=== PATIENT | male | born 1940 | race Caucasian/White ===

== ENCOUNTER 2020-02-24 10:07 | Emergency (ER) | payer MEDICARE, OTHER, SELFPAY ==
--- NOTE | ~2020-02-24 | XR_ITS ---
EXAMINATION: XR_[id number]_CR DATE: 02/24/2020 11:00 INDICATION: Right rib pain. TECHNIQUE: A frontal view of the chest and 3 views of the right ribs were obtained. COMPARISON: Chest 2 views 12/02/2017 FINDINGS: There is mild atelectasis at the lung bases. No pleural effusion or pneumothorax. The heart size is normal. There is an old healed fracture of right clavicle. There is an old healed fracture o f right sixth rib. IMPRESSION: 1. No acute rib fracture. Reviewed, dictated and finalized at location E. IMPRESSION: 1. No acute rib fracture.
[2020-02-24 10:26] VITALS: BP 119/84; PULSE 87; RESP 18; TEMP 36.7; O2SAT 98
--- NOTE | 2020-02-24 10:27 | ED.GENADULT ---
HPI - General Adult General Chief complaint: Trauma Stated complaint: rib fracture Time Seen by Provider: 02/24/20 10:27 Source: patient Mode of arrival: ambulatory Limitations: no limitations History of Present Illness HPI narrative: 79-year-old male patient presents to the [facility] with complaints of right-sided back pain/rib pain. Patient states that he fell off of a piece of machinery about 12 days ago. Patient states that since then he has been having pain to the right middle back and rib area. Patient states it does hurt when he takes deep breathing. Patient denies any shortness of breath or chest pain at this time. Denies any fevers, body aches or chills. Patient denies taking anything for the pain. Denies using any ice or heat to the area. Patient states he has had broken ribs before in the past and states this feels very similar. Related Data Home Medications Medication Instructions Recorded Confirmed No Home Medications 02/24/20 02/24/20 Allergies Allergy/AdvReac Type Severity Reaction Status Date / Time No Known Allergies Allergy Verified 02/24/20 10:21 Review of Systems Review of Systems: Narrative: CONSTITUTIONAL: Denies fever, chills, or sweats. EYES: Denies visual changes, redness, or discharge. ENT: Denies rhinorrhea, congestion, sore throat, or otalgia. CARDIOVASCULAR: Denies chest pain, palpitations, or edema. RESPIRATORY: Denies cough or dyspnea. Positive pain to right side of back with breathing GASTROINTESTINAL: Denies abdominal pain, nausea, vomiting, or diarrhea. GENITOURINARY: Denies dysuria or hematuria. SKIN: Denies rash or itching. MUSCULOSKELETAL: Positive right sided middle back pain, denies joint pain, or myalgia. NEUROLOGIC: Denies headache, numbness, or weakness. PSYCHIATRIC: Denies anxiety or depression. PMFSH Comments At the time of my signature I agree with nursing past medical history, surgical, social, and family history. There is no relevant family history pertinent to the presenting complaint. Exam Narrative: Exam Narrative: GENERAL: Well-appearing, well-nourished, and in no acute distress. HEAD: Normocephalic, atraumatic. EYES: PERRLA and EOMI. ENT: Nares clear, no rhinorrhea or epistaxis. Mucous membranes moist. NECK: Supple. No lymphadenopathy CHEST: Slightly diminished lung sounds to right upper and right lower lobes on auscultation as compared to the left side.. No respiratory distress. Patient able talk clear complete sentences. HEART: Regular rate and rhythm. No murmur heard. Normal peripheral pulses. ABDOMEN: Soft, nontender, nondistended, normal active bowel sounds. EXTREMITIES: Normal range of motion. No edema. BACK: Patient is able to ambulated without assistance. Pt is seated on the chair in no obvouis distress. No surface trauma noted. No muscle tenderness to Palpation. No spasm or mass. Patient does have tenderness on palpation to the right middle back right around the 5th-6th rib area. No step-offs or deformity noted to the cervical, thoracic or lumbar spine to firm Palpation at the midline. No CVA tenderness to percussion. No saddle anesthesia. ROM: able to stand erect. Normal flexion, extension, Lateral bending and rotation without limitation or complaint of pain. SKIN: Warm, dry, no rash. NEURO: No focal deficits. Alert and oriented x3. Course Reevaluation(s) Reevaluation #1: Discussed with patient that there is no obvious fracture noted on the x-ray. Discussed with him this is more most likely a bruise from when he fell. Discussed with patient he can continue taking Tylenol, ibuprofen for the pain. Discussed with him he can use ice or heat to the area as well and is very important that he do some deep breathing exercises to prevent pneumonia. Patient verbalized understanding of this denies any other questions or concerns at this time. Date: 02/24/20 Time: 11:50 Vital Signs Vital signs: Vital Signs Temperature 36.7 C 02/24/20 10:26 Pulse Rate 8
== END 2020-02-24 11:52 | disposition home or self-care (01) ==
PROVIDERS: Emergency Provider Nurse Practitioner Family
DX: S20.211A Contusion of right front wall of thorax, initial encounter (principal); W19.XXXA Unspecified fall, initial encounter; Z85.46 Personal history of malignant neoplasm of prostate
CPT/HCPCS: 71101; 99203; G0463

== ENCOUNTER 2020-04-17 09:36 | Emergency (ER) | payer MEDICARE, OTHER, SELFPAY ==
--- NOTE | ~2020-04-17 | XR_ITS ---
EXAMINATION: XR elbow RT min 3V DATE: 04/17/2020 10:03 INDICATION: Erythema and swelling at the posterior right elbow post fall couple weeks prior. TECHNIQUE: Anteroposterior, two oblique and lateral views of the right elbow were obtained. COMPARISON: None. FINDINGS: Alignment is normal. No fracture. Mild osteoarthritis at the right elbow characterized by mild nonuni form joint space narrowing and tiny marginal osteophytes. No right elbow joint effusion. Prominent so ft tissue swelling with increased density posterior to the tip of the olecranon which could be seen w ith hematoma or bursitis. IMPRESSION: 1. Mild right elbow osteoarthritis. No fracture or joint effusion. Reviewed, dictated and finalized at location A.
[2020-04-17 09:50] VITALS: BP 142/64; PULSE 86; RESP 20; TEMP 36.3; O2SAT 97
--- NOTE | 2020-04-17 09:50 | ED.UPPEXIN ---
HPI - Extremity Injury (Upper) General Chief Complaint: Extremity Injury, Upper Stated Complaint: rt elbow injury Time Seen by Provider: 04/17/20 09:50 Source: patient and RN notes reviewed History of Present Illness HPI narrative: Patient is a 79-year-old male who presents the urgent care with complaints of right elbow pain, redness and swelling. Patient states approximately 2 months ago he jumped off a piece of farm equipment hitting his right elbow. States that the steroid did improve some of the swelling and redness in which he started on April 04. Patient is uncertain if there redness and swelling started right after the injury or has developed over time. Patient denies of any fever, nausea, vomiting. 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 No other acute complaints. No acute distress noted. Patient read the plan of care. Related Data Home Medications Medication Instructions Recorded Confirmed cyanocobalamin (vitamin B-12) 100 mcg IM MONTHLY 08/04/19 04/17/20 1,000 mcg/mL injection solution vitamin E (dl, acetate) 450 mg 1,000 unit PO DAILY 08/04/19 04/17/20 (1,000 unit) capsule testosterone cypionate 100 mg/mL 100 mg IM WEEKLY ml 02/01/20 04/17/20 intramuscular oil Allergies Allergy/AdvReac Type Severity Reaction Status Date / Time No Known Allergies Allergy Verified 04/17/20 09:39 Review of Systems Review of Systems: Narrative: CONSTITUTIONAL: Denies fever, chills, or sweats. EYES: Denies visual changes, redness, or discharge. ENT: Denies rhinorrhea, congestion, sore throat, or otalgia. CARDIOVASCULAR: Denies chest pain, palpitations, or edema. RESPIRATORY: Denies cough or dyspnea. GASTROINTESTINAL: Denies abdominal pain, nausea, vomiting, or diarrhea. GENITOURINARY: Denies dysuria or hematuria. SKIN: Denies rash or itching. MUSCULOSKELETAL: Reports of right elbow redness, swelling, pain NEUROLOGIC: Denies headache, numbness, or weakness. All other systems reviewed are negative, except as documented in HPI. [facility] Social History Social History (System 02/29/20 @ 09:06 by Alyce Long) Smoking status: Never smoker Alcohol intake: current Gender identity (if verbalized by the patient): Male Comments At the time of my signature, I reviewed and agree with the nursing past medical, surgical, social, and family history. There is no relevant family history pertinent to the patient complaint. Exam Narrative: Exam Narrative: GENERAL: This is a well-nourished, well-developed patient, in no apparent distress. HEAD: normocephalic, atraumatic. EYES: PERRL. Sclera clear/white. Vision is grossly intact. EARS: External ears normal NOSE: External nose normal with no obvious nasal discharge, nares without redness, no rhinorrhea. THROAT: Mucous membranes moist NECK: Neck supple SKIN: warm, intact with no suspicious lesions or rash, good texture and turgor. NEURO: awake, alert, and oriented to person, place and time. There were no obvious focal neurologic abnormalities. EXTREMITIES: Localized mild fluctuant edema, notable bursitis to the right elbow with mild to moderate tenderness and erythema Course Vital Signs Vital signs: Vital Signs Temperature 97.4 F L 04/17/20 09:50 Pulse Rate 86 04/17/20 09:50 Respiratory Rate 20 04/17/20 09:50 Blood Pressure 142/64 H 04/17/20 09:50 Pulse Oximetry 97 04/17/20 09:50 Temperature 97.4 F L 04/17/20 09:50 Pulse Rate 86 04/17/20 09:50 Respiratory Rate 20 04/17/20 09:50 Blood Pressure 142/64 H 04/17/20 09:50 Pulse Oximetry 97 04/17/20 09:50 Reviewed?patient is informed that they may have pre-hypertension or hypertension based on a blood pressure reading in the department. I recommend the patient call the primary care provider listed on their discharge instructions or a physician of their choice this week to arrange follow-up for further evaluation of possible pre-hypertension or hypertension. MDM - Extrem
== END 2020-04-17 10:27 | disposition home or self-care (01) ==
PROVIDERS: Emergency Provider Nurse Practitioner Family; PCP Internal Medicine
DX: M70.31 Other bursitis of elbow, right elbow (principal)
CPT/HCPCS: 73080; 99213; G0463

== ENCOUNTER → 2020-04-26 13:40 | Outpatient (CLI) | payer MEDICARE, OTHER, SELFPAY ==
--- NOTE | ~2020-04-26 | XR_ITS ---
EXAMINATION: XR forearm RT 2V DATE: 04/26/2020 13:58 INDICATION: Right forearm localized swelling, mass, and lump. TECHNIQUE: 2 views of right forearm were obtained. COMPARISON: Right elbow radiographs 04/17/2020 FINDINGS: Bone alignment is normal. No fracture. There is mild osteoarthritis of glenohumeral joint. No elbow joint effusion. There is soft tissue swelling over the olecranon, consistent with bursitis. IMPRESSION: 1. Olecranon bursitis. Reviewed, dictated and finalized at location B. IMPRESSION: 1. Olecranon bursitis.
== END ==
PROVIDERS: PCP Internal Medicine; Visit Provider Internal Medicine
DX: M70.21 Olecranon bursitis, right elbow (principal)
CPT/HCPCS: 73090

== ENCOUNTER 2020-07-05 06:53 | Outpatient (NON) | payer MEDICARE, OTHER, SELFPAY ==
[2020-07-05 21:43] LABS: SARS-CoV-2 RNA PCR Negative
== END 2020-07-05 06:54 ==
LOC: ANHCOVIDDT 07:06
PROVIDERS: PCP Internal Medicine; Visit Provider Internal Medicine
DX: Z20.828 Contact with and (suspected) exposure to other viral communicable diseases (principal)
CPT/HCPCS: 87635; C9803; U0003

== ENCOUNTER 2021-11-29 12:04 | Outpatient (CLI) | payer MEDICARE, OTHER, SELFPAY ==
--- NOTE | ~2021-11-29 | XR_ITS ---
XR_[id number]_CR DATE: 11/29/2021 12:27 INDICATION: Neck pain, chronic. No known injury. TECHNIQUE: AP, open-mouth, lateral views COMPARISON: None FINDINGS: C1 and C2 are normally aligned and the odontoid process is intact. There is minimal anterolisthesis at C4-5 and slightly greater anterolisthesis at C5-6. There is moderate degenerative disc disease at C5-6 and moderately severe degenerative disc disease a t C6-7. There is degenerative change at the apophyseal joints throughout the cervical spine. No fracture, dislocation, locked facet or prevertebral soft tissue swelling. IMPRESSION: Cervical spondylosis Reviewed, dictated and finalized at Location A. Reviewed, dictated and finalized at location A. IMPRESSION: Cervical spondylosis
== END 2021-11-29 12:05 | disposition home or self-care (01) ==
PROVIDERS: PCP Internal Medicine; Visit Provider Internal Medicine
DX: M54.2 Cervicalgia (principal); M47.812 Spondylosis without myelopathy or radiculopathy, cervical region
CPT/HCPCS: 72040

== ENCOUNTER 2022-09-11 18:31 | Emergency (ER) | payer MEDICARE, OTHER, SELFPAY ==
--- NOTE | 2022-09-11 18:37 | ED.EXTPRO ---
HPI - Extremity Problem General Chief complaint: Extremity Problem,Nontraumatic Stated complaint: rt arm bloodclot Time Seen by Provider: 09/11/22 18:37 Source: patient, RN notes reviewed and old records reviewed Mode of arrival: ambulatory Limitations: no limitations History of Present Illness HPI Narrative: 82-year-old male presents to the [facility] with having a sharp pain in the right antecubital area over where he had blood removed for to much red blood cells on the 28 of August. Reports sharp pain lasted about 30 minutes. Patient denies any pain currently. No bruising or swelling noted. No edema noted to the distal aspect. Related Data Home Medications Medication Instructions Recorded Confirmed vitamin E (dl, acetate) 450 mg 1,000 unit PO DAILY 08/04/19 09/11/22 (1,000 unit) capsule omega-3 fatty acids 1,000 mg 1,000 mg PO DAILY 01/31/21 09/11/22 capsule (Fish Oil Concentrate) amlodipine 10 mg tablet 10 mg PO DAILY 08/15/21 09/11/22 aspirin 81 mg tablet,delayed 81 mg PO DAILY 09/11/22 09/11/22 release Allergies Allergy/AdvReac Type Severity Reaction Status Date / Time No Known Allergies Allergy Verified 09/11/22 18:42 Review of Systems Review of Systems: All systems reviewed & are unremarkable except as noted in HPI and below Constitutional: Constitutional: Reports no additional constitutional complaints Eyes: Eyes: Reports no additional eye complaints ENT: Reports system reviewed and no additional complaints, except as documented Cardiovascular: Cardiovascular: Reports no additional cardiovascular complaints, Denies chest pain and Denies dyspnea Respiratory: Respiratory: Reports no additional respiratory complaints, Denies chest congestion, Denies cough and Denies dyspnea Gastrointestinal: Gastrointestinal: Reports no additional gastrointestinal complaints, Denies abdominal pain, Denies nausea and Denies vomiting Musculoskeletal: Musculoskeletal: Reports as per HPI Integumentary/Breasts: Skin/Breast: Reports system reviewed and no additional complaints, except as docu Neurologic: Reports system reviewed and no additional complaints, except as documented Psychiatric: Psychiatric: Reports no additional psychiatric complaints Allergic/Immunologic: Allergic/Immunologic: Reports no additional allergic/immunologic complaints PMFSH Past Medical History Medical History Impaired glucose tolerance Septic olecranon bursitis of right elbow Family History Family History Mother Family history of heart disease in male family member before age 55 Other Malignant neoplasm of prostate Social History Social History Smoking status: Never smoker Second hand tobacco smoke exposure: No Alcohol intake: former Lack of Transportation: No Lack of Food: Never True Current Housing: I Have Housing Concerned About Future Housing: No Difficulty Paying Gas/Electric Bills: No Difficulty Paying for Meds: No Currently Unemployed: No Education: High School Diploma/GED Difficulty w/ Childcare or Family Care: No Gender identity (if verbalized by the patient): Male Comments At the time of my signature, I reviewed and agree with the nursing past medical, surgical, social, and family history. There is no relevant family history pertinent to the patient complaint. Exam Const: General: cooperative, healthy appearing, comfortable, no acute distress, well developed, alert and well nourished Nutritional Appearance: well nourished Orientation/consciousness: patient oriented x3 Limitations: no limitations HENMT: Head: normal to inspection Ears: hearing grossly normal bilaterally and external ears normal Face/Nose/Sinus: Normal external nose present, Normal nares present, Normal nasal mucous membranes and turbinates present and n
[2022-09-11 18:45] VITALS: BP 134/91; PULSE 82; RESP 16; TEMP 36.9; O2SAT 96
== END 2022-09-11 18:52 | disposition home or self-care (01) ==
PROVIDERS: Emergency Provider Nurse Practitioner; PCP Internal Medicine
DX: M79.601 Pain in right arm (principal); R73.02 Impaired glucose tolerance (oral)
CPT/HCPCS: 99211; G0463

== ENCOUNTER 2022-11-27 00:15 | Day surgery (SDC) | payer MEDICARE, OTHER, SELFPAY ==
[2022-11-18 13:07] VITALS: BMI 28.3
--- NOTE | 2022-11-26 14:10 | PM.HPGS ---
History of Present Illness History of Present Illness Consent: Risks, benefits, and alternatives have been discussed and questions answered. Patient agrees to proceed with procedure. Chief complaint: hx colon polyps Narrative: Ricardo Awan is a 82 year old male was referred for colon cancer screening. He has had colonoscopies in the past with removal of polyps, most recently about 7 years ago. Review of Systems Review of Systems: All systems reviewed & are unremarkable except as noted in HPI and below PMFSH Past Medical History Medical History Impaired glucose tolerance Septic olecranon bursitis of right elbow Family History Family History Mother Family history of heart disease in male family member before age 55 Other Malignant neoplasm of prostate Social History Social History Smoking status: Never smoker Second hand tobacco smoke exposure: No Alcohol intake: former Substance use type: does not use Lack of Transportation: No Lack of Food: Never True Current Housing: I Have Housing Concerned About Future Housing: No Difficulty Paying Gas/Electric Bills: No Difficulty Paying for Meds: No Currently Unemployed: No Education: High School Diploma/GED Difficulty w/ Childcare or Family Care: No Living arrangements: with family Gender identity (if verbalized by the patient): Male Spiritual care concerns: No Meds Home Medications and Allergies Home Medications Medication Instructions Recorded Confirmed Type vitamin E (dl, acetate) 450 mg 1,000 unit PO DAILY 08/04/19 11/18/22 History (1,000 unit) capsule omega-3 fatty acids 1,000 mg 1,000 mg PO DAILY 01/31/21 11/18/22 History capsule (Fish Oil Concentrate) amlodipine 10 mg tablet 5 mg PO DAILY 08/15/21 11/18/22 History buspirone 10 mg tablet 10 mg PO TID PRN anxiety #30 tabs 08/26/22 11/18/22 Rx metformin 500 mg tablet 500 mg PO BID #180 tabs 10/27/22 11/18/22 Rx atorvastatin 10 mg tablet 5 mg PO QHS 11/18/22 11/18/22 History zolpidem 10 mg tablet (Ambien) 5 mg PO QHS 11/18/22 11/18/22 History Allergies Allergy/AdvReac Type Severity Reaction Status Date / Time No Known Allergies Allergy Verified 11/27/22 08:16 Exam Resp: Auscultation: clear to auscultation bilaterally Cardio: Rate: regular rate Rhythm: regular rhythm GI: GI Palp: Yes Soft to palpation and No Tenderness to palpation present (GI) Assessment and Plan Assessment and plan (1) Colon cancer screening: Code(s): Z12.11 - Encounter for screening for malignant neoplasm of colon Status: Acute Assessment and Plan: Colonoscopy with possible biopsy or polypectomy or cautery or injection of substances.
[2022-11-27 08:18] VITALS: BP 111/83; PULSE 100; RESP 20; TEMP 36.1; O2SAT 97
[2022-11-27 08:37] LABS: Glucose Point of Care 152 mg/dl (65-105)
[2022-11-27] MEDS: LACTATED RINGERS 1,000 ML 150 ML IV CONT (08:38)
--- NOTE | 2022-11-27 09:02 | WPDANESEPPF ---
Anes - Initial Pre Proc Eval Procedure: Operation Date: 11/27/22 09:30 Proposed Procedures p Colonoscopy - Bubba Alonzo MD Date/Time: 11/27/22 09:02 Surgeon: Bubba Alonzo MD Pre Op Diagnosis: hx colon polyps Patient Data Age: 82 Gender: M Height: 1.85 m Weight: 97.2 kg Last Vital Signs Temp 96.9 F L 11/27/22 08:18 Pulse 100 11/27/22 08:18 Resp 20 11/27/22 08:18 BP 111/83 11/27/22 08:18 Pulse Ox 97 11/27/22 08:18 O2 Del Method Room Air 11/27/22 08:18 Allergies Allergy/AdvReac Type Severity Reaction Status Date / Time No Known Allergies Allergy Verified 11/27/22 08:16 Home Medications Medication Instructions Recorded Confirmed Type vitamin E (dl, acetate) 450 mg 1,000 unit PO DAILY 08/04/19 11/18/22 History (1,000 unit) capsule omega-3 fatty acids 1,000 mg 1,000 mg PO DAILY 01/31/21 11/18/22 History capsule (Fish Oil Concentrate) amlodipine 10 mg tablet 5 mg PO DAILY 08/15/21 11/18/22 History buspirone 10 mg tablet 10 mg PO TID PRN anxiety #30 tabs 08/26/22 11/18/22 Rx metformin 500 mg tablet 500 mg PO BID #180 tabs 10/27/22 11/18/22 Rx atorvastatin 10 mg tablet 5 mg PO QHS 11/18/22 11/18/22 History zolpidem 10 mg tablet (Ambien) 5 mg PO QHS 11/18/22 11/18/22 History Laboratory Tests 11/27/22 08:24 POC Capillary Glucose 152 mg/dl H mg/dl (65-105) Patient hx anesthesia problems: none Family hx anesthesia problems: none Results Review: All pre-operative results and documents have been reviewed as part of the pre-operative evaluation. COUNT INCLUDES THE [facility] Past Medical History Medical History Impaired glucose tolerance Septic olecranon bursitis of right elbow Family History Family History Mother Family history of heart disease in male family member before age 55 Other Malignant neoplasm of prostate Social History Social History Smoking status: Never smoker Second hand tobacco smoke exposure: No Alcohol intake: former Substance use type: does not use Lack of Transportation: No Lack of Food: Never True Current Housing: I Have Housing Concerned About Future Housing: No Difficulty Paying Gas/Electric Bills: No Difficulty Paying for Meds: No Currently Unemployed: No Education: High School Diploma/GED Difficulty w/ Childcare or Family Care: No Living arrangements: with family Gender identity (if verbalized by the patient): Male Spiritual care concerns: No Anes - Eval Final PreProcedure Day of Procedure 11/27/22 09:02 Patient weight: normal Heart: regular rate and rhythm Lungs: clear to auscultation Airway: Mallampati scale class II Neurological: alert and oriented Last oral intake: >/= 8 hours ASA classification: III Emergent: no Anesthetic plan: proceed Anesthesia type and monitoring: general GIVS and standard monitoring Results Review: All pre-operative results and documents have been reviewed as part of the pre-operative evaluation. Informed Consent: The patient's anesthetic plan and its attendant risks and benefits were discussed with the patient/family/POA. Questions were solicited and answers provided to the satisfaction of the patient/family/POA.
[2022-11-27 09:56] VITALS: BP 126/77; PULSE 92; RESP 20; O2SAT 89
[2022-11-27 10:06] VITALS: BP 107/72; PULSE 94; RESP 20; O2SAT 91
[2022-11-27 10:16] VITALS: BP 128/85; PULSE 90; RESP 20; O2SAT 92
[2022-11-27 10:26] VITALS: BP 132/85; PULSE 94; RESP 18; O2SAT 97
== END 2022-11-27 10:36 | disposition home or self-care (01) ==
PROVIDERS: PCP Internal Medicine; Visit Provider Internal Medicine Gastroenterology
PROC: 0DJD8ZZ Inspection of Lower Intestinal Tract, Via Natural or Artificial Opening Endoscopic (ICD-10-PCS; CPT 45378; principal; 2022-11-27 09:30)
DX: Z12.11 Encounter for screening for malignant neoplasm of colon (principal); D12.3 Benign neoplasm of transverse colon; D12.0 Benign neoplasm of cecum; K63.5 Polyp of colon; Z79.84 Long term (current) use of oral hypoglycemic drugs
CPT/HCPCS: 45380; 45385; 45381; 82948; 88305; J2704; J7120

== ENCOUNTER 2023-01-13 19:04 | Emergency (ER) | payer MEDICARE, OTHER, SELFPAY ==
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
[2023-01-13 19:15] VITALS: BP 141/82; PULSE 99; RESP 16; TEMP 36.5; O2SAT 95
[2023-01-13] MEDS: IBUPROFEN 400 MG TABLET 800 MG PO (20:06)
[2023-01-13] MEDS: ACETAMINOPHEN 500 MG TABLET 1000 MG PO (20:07)
[2023-01-13] MEDS: TETANUS,DIPHTHERIA,AC PERTUSSIS ADULT (0.5 ML) BOOSTRIX IM (20:07)
--- NOTE | 2023-01-13 21:20 | ED.GENADULT ---
HPI - General Adult General Chief complaint: Trauma Stated complaint: laceration Time Seen by Provider: 01/13/23 19:35 History of Present Illness HPI narrative: this is an 82-year-old toussaint presenting ED after being struck by a metal pipe. He was driving his tractor underneath a metal tripod when the back the tractor caught the device and knocked forward. It hit him on the back of the head and pinned him to the steering wheel. He did not lose consciousness, he was able to get the pipe off of him but has some pain to his head neck right hand and left rib cage. This is not on blood thinners he has no numbness tingling weakness in extremity and has some muscle pain but is otherwise doing well. Related Data Home Medications Medication Instructions Recorded Confirmed omega-3 fatty acids 1,000 mg 1,000 mg PO DAILY 01/31/21 12/02/22 capsule (Fish Oil Concentrate) amlodipine 10 mg tablet 5 mg PO DAILY 08/15/21 12/02/22 atorvastatin 10 mg tablet 5 mg PO QHS 11/18/22 12/02/22 zolpidem 10 mg tablet (Ambien) 5 mg PO QHS 11/18/22 12/02/22 Allergies Allergy/AdvReac Type Severity Reaction Status Date / Time No Known Allergies Allergy Verified 01/13/23 19:23 [facility] Past Medical History Medical History Impaired glucose tolerance Septic olecranon bursitis of right elbow Family History Family History Mother Family history of heart disease in male family member before age 55 Other Malignant neoplasm of prostate Social History Social History Smoking status: Never smoker Second hand tobacco smoke exposure: No Alcohol intake: never Substance use: never Substance use type: does not use Lack of Transportation: No Lack of Food: Never True Current Housing: I Have Housing Concerned About Future Housing: No Difficulty Paying Gas/Electric Bills: No Difficulty Paying for Meds: No Currently Unemployed: No Education: High School Diploma/GED Difficulty w/ Childcare or Family Care: No Living arrangements: with family Gender identity (if verbalized by the patient): Male Spiritual care concerns: No Exam Narrative: APPEARANCE: No apparent distress. Head: atraumatic. EYES: EOMI, Pupils are LESLIE NOSE: Atraumatic NECK: Trachea midline , no midline cervical tenderness, tenderness palpation with the right paracervical muscle RESPIRATORY: No increased rate of breathing CARDIOVASCULAR: RRR, ABDOMINAL: Non-distended MUSCULOSKELETAl: No obvious deformities, focal exam of the right hand revealed some skin abrasions over the dorsum of the hand with no severe deformity or crepitus. Functionally intact. Cap refills less than 2 seconds. Tenderness palpation over the left ribcage. NEURO: Alert. Cranial nerves 2-12 grossly intact. Sensation light touch, motor function cerebellar function intact for 4 extremities. Gait exam was normal. SKIN:: Warm, dry. Normal color PSYCHIATRIC: Normal affect Course Vital Signs Vital signs: Vital Signs Temperature 97.7 F 01/13/23 19:15 Pulse Rate 99 01/13/23 19:15 Respiratory Rate 16 01/13/23 19:15 Blood Pressure 141/82 H 01/13/23 19:15 Pulse Oximetry 95 01/13/23 19:15 Oxygen Delivery Room Air 01/13/23 19:15 Temperature 97.7 F 01/13/23 19:15 Pulse Rate 99 01/13/23 19:15 Respiratory Rate 16 01/13/23 19:15 Blood Pressure 141/82 H 01/13/23 19:15 Pulse Oximetry 95 01/13/23 19:15 Oxygen Delivery Room Air 01/13/23 19:15 Medical Decision Making MDM Narrative Medical decision making narrative: -Presentation: 82-year-old male presenting after having a metal pipe [place]. -DDX includes but is not limited to: C-spine injury, intracranial hemorrhage, hand fracture, rib fracture -Co-morbidities complicating care: hypertension, diabetes -Soc
[2023-01-13 21:50] VITALS: BP 165/86; PULSE 65; O2SAT 95
== END 2023-01-13 21:52 | disposition home or self-care (01) ==
PROVIDERS: Emergency Provider Emergency Medicine; PCP Family Medicine
DX: S09.90XA Unspecified injury of head, initial encounter (principal); S20.212A Contusion of left front wall of thorax, initial encounter; S19.9XXA Unspecified injury of neck, initial encounter; S60.511A Abrasion of right hand, initial encounter; Z23 Encounter for immunization; W22.8XXA Striking against or struck by other objects, initial encounter
CPT/HCPCS: 70450; 71046; 71100; 72125; 73130; 90471; 90715; 99284; A9270

== ENCOUNTER 2024-01-18 08:59 | Outpatient (NON) | payer MEDICARE, OTHER, SELFPAY ==
[2024-01-18 10:23] LABS: Appearance Synovial Fluid Clear (Clear); Color Synovial Fluid Yellow (Colorless); Source Synovial Fluid Synovial fluid
[2024-01-18 10:24] LABS: Nucleated Cell Synovial Fluid 130 /uL (0-200); RBC Synovial Fluid 2000 /uL (0-0)
[2024-01-18 10:57] LABS: Lymphocytes Synovial Fluid 27 %; Monocytes Synovial Fluid 34 %; Neutrophils Synovial Fluid 10 % (0-25)
[2024-01-18 10:58] LABS: Macrophages Synovial Fluid 22 %; Other Cells Synovial Fluid 7 %
[2024-01-18 10:59] LABS: Crystals Synovial Fluid None Seen (None Seen)
== END 2024-01-18 09:00 | disposition home or self-care (01) ==
PROVIDERS: PCP Nurse Practitioner Family; Visit Provider Physician Assistant Surgical
DX: M25.461 Effusion, right knee (principal)
CPT/HCPCS: 87070; 87075; 87205; 89051; 89060

== ENCOUNTER 2024-02-10 06:57 | Outpatient (CLI) | payer MEDICARE, OTHER, SELFPAY ==
--- NOTE | ~2024-02-10 | MR_ITS ---
MRI of the right knee Clinical history: Effusion Technique: Coronal proton density and proton density-weighted images, sagittal proton-density and T2 fat-sat images, and axial proton-density fat-saturated images were acquired. Findings: Anterior and posterior cruciate ligaments are intact. Medial collateral ligament and the la teral collateral ligament complex are intact. Popliteus tendon is intact. There is complex tearing of the posterior horn and body of the medial meniscus. There is complex tear ing of the posterior horn and body of the lateral meniscus. There is moderate chondral thinning along the medial patellar facet. There is moderate chondral malac ia the femoral trochlea. There is high-grade chondral loss along the posterior aspect of the lateral tibial plateau. There is additional high-grade chondral lesion along the posterior aspect of the late ral femoral condyle. There is moderate chondral thinning of the medial femoral condyle posteriorly. Extensor mechanism is intact. Large joint effusion present. No Chase's cyst. Impression: Complex tearing of the posterior horn and body of the medial and lateral menisci. Tricompartmental areas of chondromalacia, as detailed above. Large joint effusion. Reviewed, dictated and finalized at location . Impression: Complex tearing of the posterior horn and body of the medial and lateral menisc i. Tricompartmental areas of chondromalacia, as detailed above. Large joint effusion.
== END 2024-02-10 06:58 ==
LOC: MICIMG 06:58
PROVIDERS: PCP Nurse Practitioner Family; Visit Provider Physician Assistant Surgical
DX: M25.461 Effusion, right knee (principal); S83.271A Complex tear of lateral meniscus, current injury, right knee, initial encounter; S83.231A Complex tear of medial meniscus, current injury, right knee, initial encounter; M94.261 Chondromalacia, right knee; X58.XXXA Exposure to other specified factors, initial encounter
CPT/HCPCS: 73721

== ENCOUNTER 2024-02-23 19:53 | Emergency (ER) | payer MEDICARE, OTHER, SELFPAY ==
[2024-02-23 20:04] VITALS: BP 148/85; PULSE 97; RESP 16; TEMP 36.4; O2SAT 98
[2024-02-23 20:56] LABS: Basophils Absolute Auto 0.1 K/mm3 (0.0-0.1); Eosinophils Absolute Auto 0.3 K/mm3 (0-0.3); Eosinophils Percent Auto 4.4 % (0-4.4); Hematocrit 55.7 % (42.0-52.0); Hemoglobin 18.9 g/dL (14.0-18.0); Immature Granulocyte Absolute 0.19 K/mm3 (0.00-0.031); Immature Granulocyte Percent A 2.6 % (0-0.5); Lymphocytes Absolute Auto 1.28 K/mm3 (0.9-3.2); Lymphocytes Percent Auto 17.6 % (18.3-44.2); Mean Corpuscular HGB Conc 33.9 g/dl (32-36); Mean Corpuscular Hemoglobin 32.3 pg (26-34); Mean Corpuscular Volume 95.1 fl (80-100); Monocytes Absolute Auto 0.6 K/mm3 (0.1-0.6); Monocytes Percent Auto 8.8 % (2.6-8.5); Neutrophils Absolute Auto 4.8 K/mm3 (1.3-6.7); Neutrophils Percent Auto 65.6 % (45.5-73.1); Platelet Count Result 218 k/mm3 (150-375); Red Blood Count 5.86 M/mm3 (4.6-6.20); Red Cell Distribution Width 13.6 % (11.5-14.5); White Blood Count 7.3 K/mm3 (4.5-10.0)
--- NOTE | 2024-02-23 20:56 | PC.NURSE ---
Patient states his hands are numb since taking Prednisone for two weeks.
[2024-02-23 21:07] LABS: Bacteria Urine None Seen /hpf; Non Pathogenic Casts 0-2; RBC Urine 0-2 /hpf (0-2); Squamous Epithelial Cell Urine None Seen /hpf (Few); WBC Urine 0-5 /hpf (0-3)
[2024-02-23 21:12] LABS: Appearance Urine Clear (Clear); Bilirubin Urine Negative (Negative); Blood Urine Negative (Negative); Color Urine Yellow (Yellow); Glucose Urine UA Negative (Negative); Ketones Urine Negative (Negative); Leukocyte Esterase Ur Negative LEU/UL (Negative); Nitrate Urine Negative (Negative); Protein Urine Negative (Negative); Specific Grav Ur 1.017 (1.001-1.035)
[2024-02-23 21:15] LABS: Add Urine Microscopic? YES
[2024-02-23 21:36] LABS: Influenza A QL RT-PCR Negative (Negative); Influenza B QL RT-PCR Negative (Negative); RSV RNA, RT-PCR Negative (Negative); SARS-CoV-2 RNA PCR Negative (Negative)
[2024-02-23 21:46] LABS: INR 1.1; Prothrombin Time 14.4 Seconds (11.1-14.7)
[2024-02-23 21:47] LABS: Partial Thromboplastin Time 28.8 Seconds (22.3-36.8)
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
[2024-02-23] MEDS: LACTATED RINGERS 1,000 ML 999 ML IV CONT (22:06)
[2024-02-23 22:49] LABS: Alanine Aminotransferase 24 U/L (6-50); Alkaline Phosphatase 53 U/L (38-126); Anion Gap 5 mmol/L (4-12); Aspartate Amino Transferase 23 U/L (17-59); Bilirubin,Total 0.8 mg/dL (0.2-1.3); Blood Urea Nitrogen 23 mg/dL (9-20); Calcium 9.8 mg/dL (8.4-10.2); Carbon Dioxide 27 mmol/L (22-30); Chloride 102 mmol/L (98-107); Creatine Kinase 61 U/L (55-170); Estimated CRCL calculation 60 ml/min; Estimated Glomerular Filt Rate > 60; Glucose 152 mg/dL (65-110); Magnesium 2.1 mg/dL (1.6-2.3); Potassium 4.8 mmol/L (3.4-5.0); Sodium 134 mmol/L (137-145)
[2024-02-23 23:01] VITALS: BP 126/76; PULSE 67; RESP 18; O2SAT 99
== END 2024-02-23 23:02 | disposition home or self-care (01) ==
PROVIDERS: Emergency Medicine; Emergency Provider Preventive Medicine Aerospace Medicine; PCP Nurse Practitioner Family
DX: R25.2 Cramp and spasm (principal); Z20.822 Contact with and (suspected) exposure to COVID-19
CPT/HCPCS: 36415; 80053; 81001; 82550; 83735; 85025; 85610; 85730; 87637; 96360; 99283; J7120

== ENCOUNTER 2024-08-18 08:52 | Outpatient (CLI) | payer MEDICARE, OTHER, SELFPAY | END 2024-08-18 08:53 | disposition home or self-care (01) | LOC: ANHCARD 08:53 | PROVIDERS: PCP Nurse Practitioner Family; Visit Provider Nurse Practitioner Family | DX: R00.0 Tachycardia, unspecified (principal) | CPT/HCPCS: 93242 ==

== ENCOUNTER 2025-07-04 13:50 | Outpatient (CLI) | payer MEDICARE, OTHER, SELFPAY ==
--- NOTE | ~2025-07-04 | XR_ITS ---
Examination: XR hip RT 2V w AP pelvis Clinical History: M25.551 - Pain in right hip Comparison: X-rays right hip 11/14/2020 Technique: 2 views right hip with AP pelvis Findings/impression: No acute findings- 1. No fracture or dislocation right hip. 2. Mild degenerative changes bilateral hips. 3. No pelvic fracture. 4. Tiny metallic foci overlying symphysis pubis and round foci overlying left superior pubic ramus as before. Reviewed, dictated and finalized at location R.
--- OUTSIDE RECORDS SUMMARY | 2025-07-04 17:21 | XMS_ITS | Clinical Summary ---
Author Organization [facility] Address [address] [place] [address] Care Team Providers Care Fiber Worker Name Role Phone Ashok Larsen MD Primary Care Provider [phone] Source Comments [facility],non-owned Affiliates and Associated Physician Practices is amultiple site organization consisting of ambulatory clinics and hospital sitesin [place], [place], [place] and [place]. This disclosure is being madepursuant to the Care Everywhere program and may not contain all information available regarding this patient. 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 Gender Identity Not on file Sexual Orientation Not on file Plan of Treatment Health Maintenance Due Date Last Done Comments DTAP/TDAP/TD VACCINES (1 - Tdap) 1961 PNEUMOCOCCAL VACCINE 50+ (1 of 1 - PCV) 1992 ZOSTER VACCINE (1 of 2) 1992 Respiratory Syncytial Virus (RSV) Vaccine Pt: or over 60 yrs (1 - 1-dose 75+ series) 2017 DEPRESSION SCREENING 09/14/2024 COVID-19 VACCINE ( - 2023-2 5 season) 2025 INFLUENZA VACCINE (#1) 2025 HEPATITIS B VACCINE Aged Out No longe r eligible based on patient's age to complete this topic HIB VACCINE Aged Out No longer eligi ble based on patient's age to complete this topic HPV VACCINE Aged Out No longer eligi ble based on patient's age to complete this topic MENINGOCOCCAL (Group B) VACC INE SHARED DECISION-MAKING Aged Out No longer eligibl e based on patient's age to complete this topic MENINGOCOCCAL GROUPS A/C/Y/W VACCINE Aged Out No longer eligible b ased on patient's age to complete this topic Insurance MEDICARE Care Teams Fiber Worker Relationship Specialty Start Date End Date Ashok Larsen MD [address] [place] [id number] PCP - General 06/19/10
== END 2025-07-04 13:51 | disposition home or self-care (01) ==
PROVIDERS: PCP Nurse Practitioner Family; Visit Provider Orthopaedic Surgery
DX: M16.0 Bilateral primary osteoarthritis of hip (principal); R93.89 Abnormal findings on diagnostic imaging of other specified body structures; M25.551 Pain in right hip
CPT/HCPCS: 73502